=== PATIENT | female | born 1995 ===

== ENCOUNTER 2017-04-10 17:53 | Inpatient (IN) | payer OTHER ==
[~2017-04-10] VITALS: Ht 162.6 cm; Wt 56.7 kg
[2017-04-10] MEDS ORDERED: IRON325 MG (17:58)
[2017-04-12] MEDS ORDERED: DOXYCYCLINE HY100 MG PO (09:21)
[2017-04-12] MEDS ORDERED: FERROUS SULFAT325 MG PO (09:22)
== END 2017-04-12 10:52 | disposition home or self-care (01) | DRG 770 ==
LOC: ER 17:53 → SEC-K 04-11 09:04 → O/R 04-11 09:04 → OB/GYN 04-11 19:26
PROVIDERS: Obstetrics & Gynecology
PROC: 30233N1 Transfusion of Nonautologous Red Blood Cells into Peripheral Vein, Percutaneous Approach (ICD-10-PCS; 2017-04-11)
PROC: BU4CZZZ Ultrasonography of Uterus and Ovaries (ICD-10-PCS; 2017-04-11)
PROC: 10D17Z9 Manual Extraction of Products of Conception, Retained, Via Natural or Artificial Opening (ICD-10-PCS; principal; 2017-04-11 19:00)
DX: O03.1 Delayed or excessive hemorrhage following incomplete spontaneous abortion (principal); D50.0 Iron deficiency anemia secondary to blood loss (chronic)

== ENCOUNTER 2017-10-16 09:56 | Emergency (ER) | payer OTHER ==
[~2017-10-16] VITALS: Ht 162.6 cm; Wt 55.3 kg
[~2017-10-16 09:56] MED LIST: DOXYCYCLINE HY100 MG PO; FERROUS SULFAT325 MG PO; IRON325 MG
[2017-10-16] MEDS ORDERED: PYRIDIUM100 M1 PO (10:42)
[2017-10-16] MEDS ORDERED: SULFAMETHOXAZO1 EACH PO (10:43)
== END 2017-10-16 13:22 | disposition home or self-care (01) ==
LOC: ER 09:56
DX: N39.0 Urinary tract infection, site not specified (principal)